=== PATIENT | male | born 1935 | race Caucasian/White ===

== ENCOUNTER 2018-12-30 10:01 | Inpatient (IN) ==
[2018-12-30] MEDS ORDERED: XYLOCAINE 2% VISCOUS MT ONE (11:15)
--- NOTE | 2018-12-30 11:22 | Diag Imaging Result Doc PS360 ---
EXAM: CHEST-1 VIEW HISTORY: edema TECHNIQUE: Single view COMPARISON: None. FINDINGS: The lungs are well expanded. The heart is not enlarged. The vessels are not distended. There are no infiltrates. No effusion identified. IMPRESSION: Negative exam. Electronically signed by Tang Longo 12/30/2018 11:19 AM
[2018-12-30 11:34] LABS: BASO# 0.05 X1000 (0.0-0.2); BASO% 0.6 % (0.0-0.8); EOS# 0.12 X1000 (0.0-0.7); EOS% 1.5 % (0.0-10.0); HEMOGLOBIN 11.3 g/dL (14.0-18.0); IMM GRAN# 0.02 X1000 (0.0-0.04); IMM GRAN% 0.3 % (0.0-0.5); LYMPH# 1.27 X1000 (1.2-3.4); LYMPH% 16.3 % (20.5-51.1); MCH 29.2 PG (27-31); MCHC 32.3 g/dL (33-37); MCV 90.4 FL (81-99); MONO# 0.57 X1000 (0.11-0.59); MONO% 7.3 % (1.7-9.3); MPV 11.2 FL (7.4-10.4); NEUT# 5.74 X1000 (1.4-6.5); PLT 267 X1000 (130-400); RBC 3.87 XMIL (4.7-6.1); RDW 15.5 % (11.5-14.5); WBC 7.77 X1000 (4.8-10.8)
[2018-12-30 11:51] LABS: ALB/GLOB RATIO 1.7; ALBUMIN 4.5 g/dL (3.5-5.0); CALCIUM 9.3 mg/dL (8.8-10.2); CREATININE 3.6 mg/dL (0.7-1.2); POTASSIUM 4.7 mmol/L (3.5-5.1); TOTAL BILIRUBIN 0.2 mg/dL (0.20-1.00); TOTAL PROTEIN 7.1 g/dL (6.3-8.3)
[2018-12-30] MEDS ORDERED: XYLOCAINE 2% JELLY UROJECT UR ONE (12:00)
[2018-12-30] MEDS ORDERED: FLOMAX PO ONE (12:32)
--- NOTE | 2018-12-30 12:32 | PROVIDER DOCUMENTATION ---
This chart was entered by Andrew Estrada Scribe, acting as scribe for Puma Moya MD. HPI-General Adult - General Chief Complaint: Edema Stated Complaint: EDEMA Time Seen by Provider: 12/30/18 10:29 Source: patient, family Allergies/Adverse Reactions: Patient Allergies Allergy/AdvReac Type Severity Reaction Status Date / Time codeine Allergy Unknown Verified 12/30/18 11:49 Penicillins Allergy Unknown Verified 12/30/18 11:49 - History of Present Illness -Gen Adult Nature of Presenting Problems: 83 yom presents to the ed with c/o bilateral edema on lower extremity's and enlarged prostate. pt states onset symptoms started little over a month ago. stated " it started as small swelling then increased a week ago." stated " pt when urinating now urine is a dribble , and pt gets up and down constantly to use the bathroom." stated pt was put on Lasix and had no change. pt stated recent change in thyroid medication. Location of Pain/Injury: reports: upper extremity (Bilateral edema) Pain Radiation: reports: no radiation Quality of Pain: reports: none Severity: reports: mild Onset/Duration: reports: other (pt states " about a month") Timing: reports: still present Context/Activities at Onset: reports: none Modifying Factors: worse with: movement Associated Symptoms: reports: shortness of breath. denies: arm pain, back/neck pain, chest pain, constipation, cough, diarrhea, fever/chills, headaches, loss of appetite, nausea, vomiting Similar Symptoms Previously?: No Recently seen or treated by another doctor?: No Review of Systems - Adult - REVIEW OF SYSTEMS - ADULT Constitutional: denies: chills, fever Eyes: reports: no symptoms reported Ears, Nose, Mouth & Throat: denies: ear pain, sinus problem, throat swelling Cardiovascular: denies: chest pain, heart murmur, palpitations, syncope Respiratory: reports: see HPI, shortness of breath. denies: cough, wheezing Gastrointestinal: denies: abdominal pain, constipation, diarrhea, nausea, rectal bleeding, vomiting Genitourinary: reports: urinary retention. denies: dysuria, discharge Musculoskeletal: reports: see HPI. denies: back pain, neck pain Integumentary: reports: no symptoms reported Neurological: reports: no symptoms reported Psychiatric: reports: no symptoms reported Endocrine: reports: no symptoms reported Hematologic/Lymphatic: reports: no symptoms reported Allergic/Immunologic: reports: no symptoms reported All Other Systems: Reviewed and Negative Past History - Adult - PAST MEDICAL HISTORY-ADULT Review of Records: reports: Old Records Reviewed, Nursing Assessment Review, Medications Reviewed, Social history reviewed & non-contributory. Major Childhood Illnesses: reports: denies history Cardiovascular: reports: HTN, hyperlipidemia Respiratory: reports: denies history Gastrointestinal: reports: GERD Obstetrical/Gynecological: reports: denies history Genitourinary: reports: denies history Musculoskeletal: reports: denies history Neurological: reports: denies history Endocrine/Immune: reports: cancer (skin) Other Conditions: reports: denies history - IMMUNIZATION STATUS Childhood Immunizations: See Nurse Assessment Flu Vaccine: See Nurse Assessment - FAMILY HISTORY Family History: reviewed, not pertinent Physical Exam-General - PHYSICAL EXAM-ADULT Initial Vital Signs Reviewed: Yes - CONSTITUTIONAL General Appearance: appears well, alert, no apparent distress - EYES Eyes: PERRL/EOMI, pink conjunctivae - HEAD, EARS, NOSE, MOUTH & THROAT HENMT: moist mucous membranes, pharynx normal - RESPIRATORY Respiratory: normal breath sounds, no pleuratic chest pain, no respiratory distress, no accessory muscle use - CARDIOVASCULAR Cardiovascular: regular rate, rhythm, no edema, no gallop, no JVD, no murmur - GASTROINTESTINAL (ABDOMEN) Abdominal Exam: non tender, soft, no organomegaly, no pulsatile mass - GENITOURINARY Male Genitalia: scrotal swelling Rectal Exam: deferred Hemoccult Exam: deferred - MUSCULOSKELETAL Extremity: pedal edema (2 + bilateral extermitys) - SKIN Integumentary: normal color, normal turgor, warm/dry - NEUROLOGIC Neurologic: nursing education specialist II-XII nml as tested, grossly normal, no motor/sensory deficits - PSYCHIATRIC Psych/Mental Status: normal mood/affect, normal thought content, normal thought process, oriented x 3 Progress - PLAN OF CARE/RESULTS Progress/Plan/Lab Results: Vital Signs - 8 hr 12/30/18 10:12 Temperature 97.6 F Pulse Rate 83 Respiratory Rate 18 Blood Pressure 178/83 O2 Sat by Pulse Oximetry 97 Orders Category Date Time Status Blackwood Cath Insertion ORDERED Care 12/30/18 10:51 Active CHEST-1 VIEW [RAD] Stat Exams 12/30/18 10:44 Ordered CBC WITH DIFF [HEME] Stat Lab 12/30/18 10:44 Uncollected COMPREHENSIVE METABOLIC PANEL [CHEM] Stat Lab 12/30/18 10:44 Uncollected URINALYSIS W/POSS RFLX CULT [URINALYSIS] Stat Lab 12/30/18 10:44 Uncollected EKG [EKG] Stat Ther 12/30/18 10:44 Ordered Result Diagrams: 12/30/18 11:05 12/30/18 11:05 - EKG 1 Time of EKG reading by physician:: 12:18 EKG Read and Signed by:: Puma Moya EKG Interpretation (*Must complete 3 of following elements*): Normal Rate: 90 Rhythm: NSR [place]: normal QRS: normal [place] Interval: normal ST Wave: normal - XRAY 1 XRAY Study: Chest Impression: See EMR Report ( EXAM: CHEST-1 VIEW HISTORY: edema TECHNIQUE: Single view COMPARISON: None. FINDINGS: The lungs are well expanded. The heart is not enlarged. The vessels are not distended. There are no infiltrates. No effusion identified. IMPRESSION: Negative exam. Electronically signed by Tang Longo 12/30/2018 11:19 AM 12/30/18 1119 Interpreting Physician: aTng Longo MD Dictated Date/Time: 12/30/18 1119 cc: Puma Moya MD; Jenifer Conde) - CONSULTS/PCP/HOSPITALIST Notification #1 *Consult/PCP/Hospitalist*: on phone with Dr. Cuba Time Discussed: 11:12 (putting cath in pt ) Consult Disposition: Will see in ED #2 Consult: on phone with Hospitalists Time Discussed: 12:25 ([facility] will admit ) Consult Disposition: Admit Departure - Departure Date of Disposition Decision: 12/30/18 Time of Disposition Decision: 12:13 DIAGNOSIS: Edema, STEVAN (acute kidney injury), Urinary retention Disposition: ADMITTED INPATIENT 09 Certified Medical Emergency: Emergent Condition: Good Referrals and Follow-Ups: Jenifer Conde [Primary Care Provider] - - Critical Care Note This patient required my direct & personal management of CC.: No Attestation - Physician/ EDDA Attestation Patient care was provided by Advanced Practice Provider:: No The physician spent face to face time with patient:: Yes Advanced Practice Provider documentation review:: Supervising physician onsite and consulted in the evaluation and care of this patient. The physician did have a face to face encounter with the patient. This chart was documented by the indicated scribe, (Andrew Estrada, Luiz) and accurately reflects the services I performed and decisions made by me, Puma Moya MD, as attested by the provider's signature.
[2018-12-30 12:44] LABS: URINE SOURCE CATH
[2018-12-30 12:48] LABS: BILIRUBIN URINE NEGATIVE (NEGATIVE); BLOOD URINE MODERATE (NEGATIVE); COLOR ORANGE; GLUCOSE URINE NEGATIVE (NEGATIVE); KETONE URINE NEGATIVE (NEGATIVE); LEUKOCYTES URINE TRACE (NEGATIVE); NITRITE URINE NEGATIVE (NEGATIVE); PH URINE 5.5; PROTEIN URINE TRACE mg/dL (NEGATIVE); TURBIDITY URINE HAZY (CLEAR); UR EPITHELIAL CELLS <10 /HPF (<10); URINE BACTERIA NEGATIVE /HPF; URINE RBC TNTC /HPF (<10); UROBILINOGEN URINE NORMAL (NORMAL)
[2018-12-30] MEDS ORDERED: LEVAQUIN 500 MG/D5W 500 MG/100 ML IVPB IV ONE (13:06)
[2018-12-30] MEDS ORDERED: TYLENOL PO PRN (13:13)
[2018-12-30] MEDS: NS 1,000 ML IV SCH (13:42)
[2018-12-30] MEDS ORDERED: XYLOCAINE-MPF 2% ONE (14:37)
[2018-12-30] MEDS ORDERED: DIPRIVAN 1% ONE (14:37)
--- NOTE | 2018-12-30 15:35 | CONSULTATION ---
DATE OF CONSULTATION: 12/30/2018 REFERRING PHYSICIAN: Cally Physician CHIEF COMPLAINT: Swelling. HISTORY OF PRESENT ILLNESS: This 83-year-old male states that he has a history of swelling of his lower extremities and "male parts". He states this has never occurred before. He states that he has a long history of obstructive voiding. He states that his family physician placed him on Flomax at 0.4 mg a day. The patient states that he has to push to initiate voiding. He denies any previous urologic surgery and he has no history of kidney stones. He states that he has never had swelling like this before. He states that he has hernias. The right side is much larger than his left. He states that it does bulge when he pushes to void. PAST MEDICAL HISTORY: Hypothyroidism and hypertension. CURRENT MEDICATIONS: Documented on the chart and include tamsulosin 0.4 mg every morning. PAST SURGICAL HISTORY: Tonsillectomy and left hand surgery. SOCIAL HISTORY: No tobacco or alcohol use. ALLERGIES: He is allergic to codeine. He states that he cannot take hydrocodone or oxycodone either. REVIEW OF SYSTEMS: He states that usually he is in good health. He states that he runs for exercise and hikes. He denies any problems with diabetes, heart disease, strokes, seizures, pulmonary, or bowel problems. PHYSICAL EXAMINATION: General: A thin, age apparent, normally developed, white male oriented in all ways and cooperative. HEENT: Normal for age. Lungs: Clear. Cardiovascular: Regular rate and rhythm with holosystolic murmur. Abdomen: Flat with a bulge in the suprapubic area consistent with a distended bladder. There is also a noticeable right inguinal hernia. No hepatosplenomegaly or masses. Normal bowel sounds. : With edema of the foreskin and scrotum. Foreskin is able to be retracted back past the meatus. Large right inguinal hernia. Smaller left inguinal hernia. Rectal: Exam is deferred at this time. Extremities: Plus 2 pitting edema from the thighs all the way down. No cyanosis or clubbing. LABORATORY DATA: Laboratory evaluation has a white count of 7.77, hemoglobin 11.3, hematocrit 35, and platelets 267,000. Serum electrolytes has a sodium of 139, potassium 4.7, chloride 101, bicarb 17, BUN 77, and creatinine 3.6. His alkaline phosphatase is normal. Urinalysis and culture are pending. IMPRESSION: 1. Enlarged prostate with obstructive voiding. 2. Urinary retention (post-void scan was greater than 999). 3. Lower extremity and scrotal edema. 4. Renal insufficiency. PROCEDURE: The patient was prepped and draped sterilely for Blackwood catheter insertion. Approximately 20 mL of 2% viscous lidocaine was placed in the urethra and held for 5 minutes. After the anesthesia was achieved he was prepped and draped sterilely. An 18 Indonesian Blackwood catheter was attempted to be placed but before this was started there was already blood at the meatus from previous trials by the [employer]. The straight catheter would not advance into the bladder. It was removed and an 18 Indonesian Coude catheter was then passed through the patient's urethra and up to the sphincter area and after he relaxed the catheter was able to be pushed through the sphincter and up into the bladder. Immediate return of urine occurred; 10 mL of sterile water was placed in the Blackwood's balloon. Within 5 minutes over 1300 mL of clear urine returned. He tolerated this well. PLAN: His Flomax will be increased to 0.4 mg b.i.d. The patient is going to be admitted and we will follow while he is hospitalized. Thank you for this consultation. cc: Ganesh Dinero MD
[2018-12-30] MEDS: MORPHINE IV PRN ×3 (16:55→23:04)
--- NOTE | 2018-12-30 17:27 | EKG Report ---
Test Performed on : 12/30/2018 12:18:15 PM Test Reason : edema Blood Pressure : / mmHG Vent. Rate : 090 BPM Atrial Rate : 090 BPM P-R Int : 178 ms QRS Dur : 068 ms QT Int : 348 ms P-R-T Axes : 084 050 070 degrees QTc Int : 425 ms Normal sinus rhythm. Normal ECG No previous ECGs available Unconfirmed Result
[2018-12-30] MEDS: UROGESIC-BLUE PO PRN (17:44)
--- NOTE | 2018-12-30 19:44 | HISTORY AND PHYSICAL ---
PRIMARY CARE PROVIDER: Dr. Jenifer Conde. CHIEF COMPLAINT: Lower extremity swelling, scrotal swelling and leaky bladder. HISTORY OF PRESENT ILLNESS: Mr. Ganesh Baxter is an 83-year-old male with a medical history of hypertension, hypothyroidism, and most recently BPH with lower extremity edema. He states that for 2 to 3 months he has had lower extremity swelling. He was started on Lasix around 2 weeks ago. Claims that he had a cardiac workup that was negative, but over the last 2 to 3 days, he states that he started having swelling in his scrotum and a very leaky bladder. Unable to control his bladder, hard to empty his bladder. He denies burning with urination, but urinalysis appears to be a urinary tract infection. He has acute kidney injury. When they bladder scanned him, there was over 900 mL of urine in the bladder. So, they already consulted Dr. Dinero, who placed a coude Blackwood catheter and increased his frequency on his Flomax. Given the acute kidney injury, we will hold off on his Lasix and will give him some fluids to help flush his kidneys. He does have pretty good swelling in the lower extremities. We will get an echocardiogram to evaluate heart function, and for the urinary tract infection, we will start him on antibiotics. PAST MEDICAL HISTORY: 1. Hypertension. 2. Hypothyroidism. 3. BPH. 4. Bilateral lower extremity edema. SURGICAL HISTORY: 1. He had a skin cancer removed off his nose. 2. Tonsillectomy/adenoidectomy. 3. Left hand surgery. SOCIAL HISTORY: Denies tobacco. Drinks about 1 beer a week. Denies any illicit drug use. Lives at home with his of 51 years. FAMILY HISTORY: Mother had heart problems, but she early in a car wreck. Father had prostate trouble, osteoporosis, and heart attack. ALLERGIES: Codeine and penicillin. Cow's milk (lactose intolerance). HOME MEDICATIONS: 1. Amlodipine 5 mg twice daily. 2. Lasix 20 mg p.o. daily. 3. Lisinopril/hydrochlorothiazide 10/12.5 mg once daily. 4. Synthroid 25 mcg p.o. daily. 5. Tamsulosin 0.4 mg p.o. daily, but has been increased to twice daily per Dr. Dinero. REVIEW OF SYSTEMS: Fourteen-point review of systems was completed, and all were negative for those mentioned above in the HPI. PHYSICAL EXAMINATION: VITAL SIGNS: Temperature 97.6, heart rate 83, respiratory rate 18, blood pressure 178/83, O2 saturation 97% on room air. He is 5 feet 10 inches tall, 140 pounds. BMI is 20.1. GENERAL: Mr. Ganesh Baxter is an 83-year-old male. He is in no acute distress. He is able answer questions appropriately. HEENT: Atraumatic, normocephalic. Pupils equal, round, reactive to light. Extraocular movements intact. Mucous membranes are dry. NECK: Trachea midline. CARDIOVASCULAR: S1, S2. Regular rate and rhythm. No rubs, gallops, or murmurs. There is 2+ lower extremity edema, 3+ scrotal edema, 1+ dorsalis pedal pulses, +2 radial pulses. Negative JVD or carotid bruits. PULMONARY: Clear to auscultate. Bilateral breath sounds. No accessory muscle use or work of breathing noted GI: Soft, nontender, nondistended. Positive bowel sounds x4. EXTREMITIES: Moves all extremities equally. Decreased range of motion and swelling of the lower extremities. NEUROLOGIC: A and O x3. Follows commands. Sensory is intact. SKIN: Warm, dry, and intact but pale, and there is moisture between his scrotum and his thighs. LABORATORY DATA: White blood cells 7000, hemoglobin 11, hematocrit 35, platelet count 267. Sodium 139, potassium 4.7, BUN 77, creatinine 3.6, glucose 86, calcium 9.3, bilirubin 0.20. AST 40, ALT 24, albumin 4.5. Urinalysis: Trace protein, moderate blood, trace leukocytes, 10 to 20 white blood cells, yby-[id number] count red blood cells, negative bacteria. IMAGING: Chest x-ray: Negative exam. ASSESSMENT AND PLAN: 1. Benign prostatic hypertrophy with urinary retention requiring Blackwood catheter placement by Dr. Dinero. Dr. Dinero has been consulted. His Flomax has been increased to twice a day. 2. Acute kidney injury, likely postrenal due to benign prostatic hypertrophy. We will get IV fluid hydration for now and will hold off on the Lasix. We will hold off on the lisinopril. 3. Bilateral lower extremity edema and scrotal edema. We will get an echocardiogram and lower extremity ultrasound to evaluate for heart function and if there are any deep venous thromboses or clots in the legs. 4. Hypertension. We will continue with amlodipine. 5. Hypothyroidism. Continue with Synthroid. 6. Deep venous thrombosis prophylaxis, sequential compression devices. 7. Urinary tract infection. Will do Levaquin 500 daily. Dictated by SUNIL Fitch for Geoffrey Lauren MD Addendum: Patient seen and examined by myself. Agree with SIGNAL PERSON note. It reflects my assessment and plan. Patient is being admitted to hospital for anasarca and acute kidney injury. It looks like prostate is very enlarged. Urology needed to place Blackwood catheter. Will consult Urology and Nephrology and will go from there. cc: SUNIL Fitch MD [facility]
[2018-12-30] MEDS: FLOMAX PO SCH (21:54)
[2018-12-30] MEDS: MELATONIN PO SCH (21:54)
[2018-12-31] MEDS: UROGESIC-BLUE PO PRN (02:40)
[2018-12-31] MEDS: ZOFRAN IV PRN (02:40)
[2018-12-31 05:23] LABS: BASO# 0.01 X1000 (0.0-0.2); BASO% 0.1 % (0.0-0.8); HEMATOCRIT 26.4 % (42.0-52.0); HEMOGLOBIN 8.3 g/dL (14.0-18.0); IMM GRAN# 0.03 X1000 (0.0-0.04); IMM GRAN% 0.3 % (0.0-0.5); LYMPH# 0.61 X1000 (1.2-3.4); LYMPH% 6.6 % (20.5-51.1); MCH 28.9 PG (27-31); MCHC 31.4 g/dL (33-37); MONO# 0.39 X1000 (0.11-0.59); MONO% 4.2 % (1.7-9.3); NEUT# 8.24 X1000 (1.4-6.5); NEUT% 88.8 % (42.2-75.2); PLT 262 X1000 (130-400); RBC 2.87 XMIL (4.7-6.1); RDW 15.2 % (11.5-14.5); WBC 9.28 X1000 (4.8-10.8)
[2018-12-31 05:26] LABS: INR 1.24; PROTIME 15.8 Seconds (11.0-16.0)
[2018-12-31 05:27] LABS: PTT 28.3 Seconds (22.3-41.8)
[2018-12-31 05:47] LABS: ALB/GLOB RATIO 1.5; ALBUMIN 3.7 g/dL (3.5-5.0); CREATININE 3.6 mg/dL (0.7-1.2); MAGNESIUM 2.5 mg/dL (1.5-2.7); POTASSIUM 5.3 mmol/L (3.5-5.1); TOTAL BILIRUBIN 0.23 mg/dL (0.20-1.00); TOTAL PROTEIN 6.2 g/dL (6.3-8.3)
[2018-12-31] MEDS: SYNTHROID PO SCH (06:28)
[2018-12-31 07:01] LABS: BANDS 2 % (0-1); LYMPHS 4 % (21-51); MONO 4 % (1-9); SEGS 86 % (42-75)
--- NOTE | 2018-12-31 08:57 | Diag Imaging Result Doc PS360 ---
EXAM: US RENAL 2 (RETROPER) COMPLETE HISTORY: karina TECHNIQUE: Renal ultrasound COMPARISON: None. FINDINGS: The right kidney measures 11.8 x 6.6 x 6.4 cm. Moderate to prominently distended renal pelvis and calyces. Normal renal echotexture. The left kidney measures 13.6 x 8.0 x 6.6 cm. Markedly dilated renal pelvis and calyces. There is a large pelvic mass versus an enlarged prostate measuring over 15 cm. The urinary bladder is moderately distended. IMPRESSION: Prominent bilateral hydronephrosis secondary to a large pelvic mass versus enlarged prostate. Electronically signed by Tang Longo 12/31/2018 8:55 AM
[2018-12-31] MEDS: NS 1,000 ML IV SCH (09:00)
[2018-12-31] MEDS: NORVASC PO SCH (10:06)
[2018-12-31] MEDS: FLOMAX PO SCH ×2 (10:06→20:16)
[2018-12-31] MEDS: LEVAQUIN 500 MG/D5W 500 MG/100 ML IVPB IV SCH (10:06)
--- NOTE | 2018-12-31 10:07 | PROGRESS NOTE ---
DATE: 12/31/2018 SUBJECTIVE: Patient reports feeling fine. Swelling in both lower extremities still there. OBJECTIVE: Vital Signs: Temperature 97.4 degrees, heart rate 94, respiratory rate 18, blood pressure 143/75, O2 saturation 99% on room air. General Examination: This is a 89-year-old male, lying in bed, in no acute distress. Cardiovascular: S1, S2 heard. No murmurs, gallops, or rubs. Regular rate and rhythm. Respiratory: Clear bilaterally to auscultation. No work of breathing or using accessory muscles. Abdomen: Soft. A little bit distended but nontender to palpation. Bowel sounds present. No organomegaly. Extremities: Swelling of both lower extremities 4+ until both knees. Neurological: Patient alert and oriented x3. Moves 4 extremities. LABORATORY DATA: White cell count 9.3, hemoglobin 8.3, hematocrit 26.4, platelets 262,000. Potassium 5.38. Creatinine 3.6, calcium 7.5. Renal ultrasound done today showed prominent bilateral hydronephrosis secondary to large pelvic mass versus enlarged prostate. ASSESSMENT AND PLAN: 1. Acute kidney injury, most likely postobstructive secondary to benign prostatic hypertrophy. Dr. Dinero was consulted because we were not able to place Blackwood catheter on this patient. The renal ultrasound showed severe bilateral hydronephrosis secondary to enlarged prostate pelvic mass. We are going to do a CT of the abdomen and pelvis to confirm that finding and have other visualization of the pelvic anatomy. 2. Bilateral lower extremity edema and scrotal edema most likely related to this kidney problem. We will get echocardiogram to see if there is any heart problem that could explain this lower extremity edema. 3. Hypertension. Blood pressure is under control. We will continue with same management. 4. Hypothyroidism. Patient is on Synthroid. Will continue with the same medication. 5. Urinary tract infection. We will continue with Levaquin, has been started on admission, 500 mg p.o. daily. 6. Disposition. We will continue to monitor this patient. CT of the abdomen and pelvis is pending. We will see what it shows. cc: Geoffrey Lauren MD MTDD
[2018-12-31] MEDS: LOKELMA POWDER PACKET PO SCH ×3 (10:49→18:24)
[2018-12-31 13:17] LABS: CALCIUM 9.8 mg/dL (8.8-10.2)
[2018-12-31] MEDS ORDERED: SODIUM CHLORIDE 0.9% INJ PRN (13:26)
[2018-12-31] MEDS ORDERED: G.I. COCKTAIL PO ONE (13:26)
[2018-12-31] MEDS: PHENERGAN IV PRN (13:58)
--- NOTE | 2018-12-31 16:50 | Diag Imaging Result Doc PS360 ---
EXAM: CT RENAL STONE SEARCH HISTORY: pelvic mass on ultrasound. TECHNIQUE: CT abdomen and pelvis without contrast. COMPARISON: None. FINDINGS: There are tiny pleural effusions. Severe atherosclerosis. Small nonspecific hypodense hepatic lesions which may simply be cysts. No calcified gallstones. Spleen is small. Normal pancreas and adrenal glands. Prominent bilateral hydronephrosis, left greater than right. The urinary bladder is markedly enlarged measuring at least 13.5 x 14.5 x 20.5 cm. Large mixed density area within the central portion of the urinary bladder. There is a Blackwood catheter. No bowel obstruction. There are scattered colonic diverticula. Fat filled right inguinal hernia. Body wall edema is present. IMPRESSION: 1.Markedly distended urinary bladder with a large bladder mass versus large hematoma with bilateral hydronephrosis. Urological consult recommended. 2.Body wall edema with tiny pleural effusions 3.Severe atherosclerosis 4.Colonic diverticulosis 5.Right inguinal hernia This exam was performed using automated exposure control, adjustment of mA or kV according to patient size, and/or use of iterative reconstruction technique. Electronically signed by Tang Longo 12/31/2018 4:48 PM
[2018-12-31] MEDS: MELATONIN PO SCH (20:16)
[2018-12-31 22:39] LABS: HEMATOCRIT 21.6 % (42.0-52.0); HEMOGLOBIN 6.9 g/dL (14.0-18.0)
[2019-01-01] MEDS: NS 1,000 ML IV SCH (05:46)
[2019-01-01] MEDS: SYNTHROID PO SCH ×2 (05:46→06:03)
[2019-01-01 06:44] LABS: BASO# 0.01 X1000 (0.0-0.2); BASO% 0.1 % (0.0-0.8); EOS# 0.02 X1000 (0.0-0.7); EOS% 0.2 % (0.0-10.0); HEMATOCRIT 22.4 % (42.0-52.0); HEMOGLOBIN 7.3 g/dL (14.0-18.0); IMM GRAN# 0.03 X1000 (0.0-0.04); IMM GRAN% 0.3 % (0.0-0.5); LYMPH# 0.87 X1000 (1.2-3.4); LYMPH% 9.2 % (20.5-51.1); MCH 29.3 PG (27-31); MCHC 32.6 g/dL (33-37); MONO# 1.02 X1000 (0.11-0.59); MONO% 10.8 % (1.7-9.3); MPV 10.8 FL (7.4-10.4); NEUT% 79.4 % (42.2-75.2); PLT 213 X1000 (130-400); RBC 2.49 XMIL (4.7-6.1); RDW 14.9 % (11.5-14.5); WBC 9.45 X1000 (4.8-10.8)
[2019-01-01] MEDS ORDERED: GENTAMICIN ONE (08:02)
[2019-01-01] MEDS ORDERED: NS 500 ML IV ONE (08:57)
--- NOTE | 2019-01-01 09:04 | ECHO REPORT ---
ORDER DATE: 12/31/2018 MEASUREMENTS: Septal thickness 0.8, left ventricular internal diameter in diastole 4.6, posterior wall thickness 0.8, left ventricular internal diameter in systole 3.6, aortic root 3.3, left atrium 2.9. SUMMARY: 1. Fair quality study. 2. Aortic valve is trileaflet and opens normally on 2-dimensional images. The peak gradient across the aortic valve by Doppler is 10 to 15 mmHg. There is mild aortic regurgitation. The aortic root is normal in size. There is mild dilatation of proximal ascending aorta. Mitral, tricuspid, and pulmonic valves are without evidence of structural abnormality, with mild mitral regurgitation and trace tricuspid regurgitation. The estimated systolic PA pressure by Doppler is 35 mmHg. 3. Normal left ventricular dimension is demonstrated. Estimated left ventricular ejection fraction appears to be at least 55%. No regional wall motion abnormalities are evident. Doppler suggests grade 1 left ventricular diastolic dysfunction. Left atrium, right atrium, and right ventricle are normal in size with grossly preserved right ventricular systolic function. 4. No pericardial effusion. 5. Appearance of inferior vena cava suggests normal central venous pressure. CONCLUSIONS: 1. Mild aortic regurgitation. 2. Mild dilatation of proximal ascending aorta. 3. Mild mitral regurgitation. 4. Trace tricuspid regurgitation with estimated systolic PA pressure of 35 mmHg. 5. Estimated left ventricular ejection fraction at least 55%. 6. Grade 1 left ventricular diastolic dysfunction suggested. cc: MD Jeane Martin CRNP
[2019-01-01] MEDS ORDERED: XYLOCAINE-MPF 2% ONE (09:13)
[2019-01-01] MEDS ORDERED: DIPRIVAN 1% ONE (09:13)
[2019-01-01] MEDS ORDERED: LEVAQUIN 500 MG/D5W 500 MG/100 ML IVPB ONE (09:26)
[2019-01-01] MEDS: LEVAQUIN 500 MG/D5W 500 MG/100 ML IVPB IV SCH (09:50)
[2019-01-01] MEDS ORDERED: ZOFRAN ONE (10:51)
[2019-01-01] MEDS: DILAUDID ONE ×4 (11:18→11:27)
--- NOTE | 2019-01-01 11:22 | NEPHROLOGY CONSULTATION ---
DATE: 01/01/2019 Chief complaint: I was swelling in my feet. HPI: Mr. Baxter is an 83 year old white male with a past medical history of hypertension, hypothyroidism, and most recently BPH with lower extremity edema. Hes had a 2 to 3 month history of lower extremity swelling that he was started on Lasix for around two weeks ago. Three days ago he started having scrotal edema and an incontinent bladder. He denies burning with urination. When he presented to the emergency department they bladder scanned him and he had over 900 mL of urine in his bladder. Dr. Dinero placed a Coude Blackwood catheter and increased his flomax. His urine analysis was positive for bacteria with urine cultures pending. His CT of his abdomen and pelvis showed a large bladder mass with bilateral hydronephrosis. He is currently awaiting surgery with Dr. Dinero. His admitting Creatinine is 3.6 with no baseline available. Past medical history: hypertension, hypothyroidism, BPH Past surgical history: left hand surgery, tonsillectomy/adenoidectomy, skin cancer removal off of his nose. Social history: lives at home with his , denies tobacco or illicit drug use. Admits to occasional alcohol. Family history: mother positive for heart disease. Father positive for prostate problems, osteoporosis, and myocardial infarction. Allergies: codeine and penicillin Home medications: Amlodipine, Lasix, lisinopril/hydrochlorothiazide, Synthroid, Flomax. Review of systems: neurological: Denies altered mental status or confusion. Eyes: denies blurriness, dryness, or change in visual acuity. ENT: denies tinnitus or change in hearing. Integumentary: denies color change, rash or itching. Respiratory: denies shortness of breath and orthopnea. Denies productive cough. Cardiovascular: denies palpitations or chest pain. GI: Denies constipation and nausea and vomiting. : admits to incontinent bladder episodes, denies pain or burning with voids. Endocrine: denies excessive thirst or hunger. Musculoskeletal: denies any increase in weakness. Admits to new onset bilateral lower extremity edema. Physical exam: vitals. Temperature 98.0, pulse 92, respirations 15, blood pressure 158/79, 02 sat 97% on 2 L nasal cannula. General: elderly white male lying in bed in pre-op in no acute distress HEENT: normocephalic, atraumatic, mucous membranes moist. Pupils equal round and reactive. Skin: warm and dry Neck: supple, No jvd. Cardiovascular: S1, S2, regular rate and rhythm. No murmur or gallop. Respiratory: clear bilaterally with equal air excursion Abdominal: distended, firm, nontender. bowel sounds present : None observed. Blackwood in place. Extremities: 2+ pitting Edema to lower extremities bilaterally. Neurologic: alert, oriented to person, place, and time. Assessment and plan: 1. Acute kidney injury from bilateral hydronephrosis with chronicity on left. He has a Blackwood catheter, and has plans to go to the operating room today. Repeat urine studies and labs. Observe. 2. Medications reviewed. 3. Acid base/electrolytes. No intervention required. cc: Johan Cruz MD MTDD
--- NOTE | 2019-01-01 11:46 | Diag Imaging Result Doc PS360 ---
EXAM: RETROGRADES 2 OR 3 FILMS 01/01/2019 HISTORY: ESTHER STENTS,GROSS HEMATURIA,ESTHER. RETROGRADES TECHNIQUE: 116 images, three minutes 34 seconds fluoroscopy time, 85.11 mGy. COMMENT: There is mucosal irregularity and narrowing of the proximal right ureter extending over a length of over 2 cm. The left ureter is somewhat distended and tortuous. There is marked hydronephrosis on the left. Bilateral ureteral stents were placed. IMPRESSION: Bilateral hydronephrosis worse on the left than the right. The obstruction on the left side may be at the level of the ureteral orifice. The possibility of mucosal neoplasia in the distal right ureter cannot be excluded. Bilateral stent placement. Electronically signed by Tony Glynn 01/01/2019 11:43 AM
[2019-01-01] MEDS: NORVASC PO SCH (12:37)
[2019-01-01] MEDS: FLOMAX PO SCH ×2 (12:37→20:29)
[2019-01-01 12:41] LABS: HEMATOCRIT 23.2 % (42.0-52.0); HEMOGLOBIN 7.4 g/dL (14.0-18.0); MCHC 31.9 g/dL (33-37); RBC 2.55 XMIL (4.7-6.1); RDW 15.1 % (11.5-14.5); WBC 10.36 X1000 (4.8-10.8)
[2019-01-01 12:55] LABS: ALBUMIN 3.3 g/dL (3.5-5.0); CALCIUM 8.6 mg/dL (8.8-10.2); CREATININE 3.6 mg/dL (0.7-1.2); PHOSPHORUS 5.5 mg/dL (2.7-4.5); POTASSIUM 4.6 mmol/L (3.5-5.1)
--- NOTE | 2019-01-01 13:06 | OPERATIVE NOTE ---
PROCEDURE DATE: 01/01/2019 SURGEON: Dr. Ganesh Dinero. PREOPERATIVE DIAGNOSIS: Pelvic mass. Probable clot in bladder with bilateral hydroureteronephrosis. POSTOP DIAGNOSIS: Pelvic mass. Probable clot in bladder with bilateral hydroureteronephrosis; a large amount of clot in the bladder. PROCEDURE PERFORMED: Cystoscopic exam, clot irrigation fulguration of some bleeding areas, bilateral retrograde ureteral pyelograms placed, bilateral double-J stents. ANESTHESIA: General via laryngeal mask. FINDINGS: Cystoscopic exam: Urethra--greater than 23-Fijian without stricture. Prostate-- coapting lateral lobes, elevated bladder neck length approximately 6 cm. Bladder--median lobe. Grade 3 trabeculations. Multiple diverticula throughout (this was after all the clot was removed from the bladder). Rectal exam reveals a very firm prostate with a large nodule at the right base. INDICATIONS FOR PROCEDURE: This 83-year-old male was admitted with urinary retention. A Blackwood catheter was placed and he had over 1500 mL of urine return within 5 minutes. The patient has had intermittent hematuria since then, and a CT stone search revealed bilateral hydroureteronephrosis and a large pelvic mass, probable clot in the bladder. DESCRIPTION OF PROCEDURE: After informed consent was obtained from the patient and family and him receiving IV antibiotics, he was taken to the main OR cystoscopy room, placed in a supine position. General anesthesia via laryngeal mask was achieved. He was then placed in the low lithotomy position, prepped and draped in the usual sterile fashion for cystoscopic exam. A 21- Fijian sheath cystoscope was passed to the patient's urethra, prostate, and into the bladder. A large amount of clot was visualized. The sheath was changed to a 23-Fijian, and the bladder was irrigated. Over 1000 mL of old clot was removed. After the clot was removed, there were several bleeding areas and these were cauterized. The bladder neck area was also oozing and this was cauterized. An 8-Fijian cone-tipped catheter was passed through the cystoscope and engaged in the left ureteral orifice. Contrast was injected. Right side was accomplished similarly. Again, this revealed hydroureteronephrosis, left side worse than right, with no filling defects. However, the collecting systems were not completely distended because of their size. The 8-Fijian cone-tipped catheter was removed. A 0.035 ZIPwire was passed through the cystoscope and engaged the left ureteral orifice, advanced up into the kidney. This had to be done with manipulation because the ureters were very tortuous, but this was finally accomplished using a 5-Fijian open ended ureteral catheter and the wire to finally get the wire up into the kidney. The 5-Fijian open ended ureteral catheter was removed. A 6-Fijian, 24 cm double-J stent was passed over the ZIPwire and up into the kidney. The renal end was verified by fluoroscopic exam, bladder end directly visualized. The right side was accomplished similarly, and it likewise had to have the 5- Fijian open-ended ureteral catheter used to be able to get the wire up into the kidney. The stent removal strings were removed. At completion, both double-J stents were in place and there was no bleeding areas seen. The bladder was left distended. A 22-Fijian, 3 way Blackwood catheter was passed through the patient's urethra, prostate, and in the bladder 30 mL sterile water placed in Blackwood's balloon. Blackwood was placed to gravity drain. The efflux was light pink. Continuous bladder irrigation was started to keep the efflux completely clear. He tolerated the procedure well. Estimated blood loss during the case less than 5 mL. He was taken to the recovery room in good condition. cc: Ganesh Dinero MD
--- NOTE | 2019-01-01 14:23 | PROGRESS NOTE ---
DATE: 01/01/2019 SUBJECTIVE: The patient reports feeling fine. He is just back from surgery. No complaints at this point. OBJECTIVE: Vital Signs: Temperature 97.6 degrees, heart rate 92, respiratory rate 16, blood pressure 141/62, O2 saturation 100% on room air. General: This is an 83-year-old male, lying in bed in no acute distress. Cardiovascular: S1, S2 heard. No murmurs, gallops, or rubs. Regular rate and rhythm. Respiratory: Clear bilaterally to auscultation. No work of breathing. Not using accessory muscles. Abdomen: Soft, nontender to palpation. Bowel sounds present. No organomegaly. Extremities: No clubbing cyanosis, or edema. Peripheral pulses present in both legs. Neurological: The patient is alert and oriented x3. Moves all 4 extremities. LABORATORY DATA: Hemoglobin is 7.4, but from yesterday at 10 p.m., it was 6.9. Creatinine 3.6. ASSESSMENT AND PLAN: 1. Acute kidney injury, most likely postobstructive secondary to benign prostatic hypertrophy. The patient was admitted to the hospital for what apparently looks to be acute kidney injury secondary to obstruction. He had a big prostate. The renal ultrasound confirmed bilateral hydronephrosis secondary to large pelvic mass versus enlarged prostate. The renal CT confirmed markedly distended urinary bladder with large bladder mass versus large hematoma with bilateral hydronephrosis. Because he started having also bleeding yesterday, he was having marked hematuria, we informed Dr. Dinero from Urology, who took this patient to the operating room. That confirmed pelvic mass, and there was also probable clot in the bladder, and also confirmed the bilateral hydronephrosis. For this pelvic mass, General Surgery has been consulted. Will see what they have to say. 2. Bilateral lower extremity edema and scrotal edema secondary to acute kidney injury. To rule out any heart problems, we have done an echocardiogram, which basically showed ejection fraction of 55%, with mild aortic regurgitation and mitral regurgitation, so at this point, will continue to monitor. 3. Hypothyroidism. The patient is on Synthroid. Will continue with the same management. 4. Urinary tract infection. The patient has been placed on Levaquin. The urine culture showed no growth. Will continue with the same management. 5. Disposition. At this point, will await surgical consultation regarding this pelvic mass. Urology is also following this patient. Will follow recommendations. cc: Geoffrey Lauren MD
--- NOTE | 2019-01-01 16:29 | GENERAL SURGERY CONSULTATION ---
DATE: 01/01/2019 This is a pleasant 83-year-old gentleman who has never been in the hospital until now except for a tonsillectomy when he was very young. He presents with lower extremity swelling. He was noted to have a distended bladder in the emergency room and an attempt was made at placement of a Blackwood catheter, was unsuccessful and Dr. Dinero had to see him and place a Blackwood coude. Subsequent to that he developed bleeding and a CT scan showed a large bladder or prostate mass vs hematoma. He also has bilateral hernias larger on the right side. His past history per for hypothyroidism and hypertension. MEDICATIONS: At home include amlodipine, Lasix, Flomax and Synthroid. ALLERGIES: Codeine and penicillin. PREVIOUS SURGERY: Includes his tonsillectomy. He has had left hand surgery from an injury as well. FAMILY HISTORY: Pertinent for prostate trouble in his father, heart disease and osteoporosis. SOCIAL HISTORY: He is his of 51 years. Denies tobacco, denies any illicit drug use. He does drink beer occasionally. REVIEW OF SYSTEMS: Otherwise negative in all 10 subsystems. PHYSICAL EXAMINATION: He is afebrile, heart rate 104, blood pressure 122/69, respiratory rate 20. He is somewhat hard of hearing. No cervical adenopathy. Bilateral breath sounds.Heart: Regular rate and rhythm. Abdomen: Soft. This bladder/mass/hematoma is palpated above his pubic bone up to his umbilicus. It is tender to palpation. He has bilateral inguinal hernias larger on the right side. Blackwood catheter is in place. There is blood noted within his urine. He moves all extremities. He is awake and alert. He has diminished auditory acuity. LABS: Today his hemoglobin is 7.4, hematocrit 23, white count 10,400, BUN 74, creatinine 3.6. His pro time yesterday was 15.8, INR 1.2. ASSESSMENT: Bladder/prostate mass with hematoma. The etiology is uncertain. His certainly had the lower urinary tract obstruction from his prostate and this has been relieved with the urethral catheter. Both ureters were also drained adequately. I think primarily this is urologic issue. We can address his hernias after his bladder mass/hematoma and prostate is addressed and treated. Certainly he should not get any anticoagulants in the hospital and any DVT prophylaxis should be mechanical in origin. cc: Campbell Ryder MD MTDD
--- NOTE | 2019-01-01 17:28 | Extremity Venous Study ---
PROCEDURE NAME: Venous U/S Bilateral Legs - 12/31/2018 BILATERAL LOWER EXTREMITY VENOUS IMAGING STUDY: REFERRING PROVIDER: SUNIL Fitch INTERPRETING PHYSICIAN: Campbell Ryder MD SENIOR RUBY DEVELOPER: Venus. REASON FOR STUDY: The patient has bilateral lower extremity swelling. FINDINGS: Bilateral lower extremity venous images was accomplished. The common femoral, superficial femoral, deep femoral, popliteal, posterior tibial, peroneal, and greater saphenous veins are imaged bilaterally. The Doppler is used to evaluate the veins for spontaneity, phasicity, respiratory excursion, distal augmentation. All veins are compressible. No intraluminal clot is seen. A small left popliteal cyst is noted. INTERPRETATION: 1. No evidence of deep or superficial venous thrombosis in either lower extremity in the veins identified. 2. A small left popliteal cyst is noted. cc: MD Jeane Carvajal CRNP
[2019-01-01] MEDS: MELATONIN PO SCH (20:30)
[2019-01-02] MEDS: MORPHINE IV PRN (01:10)
[2019-01-02] MEDS: NS 1,000 ML IV SCH ×2 (02:23→23:19)
[2019-01-02] MEDS: SYNTHROID PO SCH ×2 (05:37→06:25)
[2019-01-02 06:44] LABS: BASO# 0.02 X1000 (0.0-0.2); BASO% 0.2 % (0.0-0.8); EOS# 0.05 X1000 (0.0-0.7); EOS% 0.4 % (0.0-10.0); HEMATOCRIT 25.7 % (42.0-52.0); HEMOGLOBIN 8.4 g/dL (14.0-18.0); IMM GRAN# 0.03 X1000 (0.0-0.04); IMM GRAN% 0.3 % (0.0-0.5); LYMPH# 1.43 X1000 (1.2-3.4); LYMPH% 12.5 % (20.5-51.1); MCH 29.6 PG (27-31); MCHC 32.7 g/dL (33-37); MCV 90.5 FL (81-99); MONO# 1.32 X1000 (0.11-0.59); MONO% 11.6 % (1.7-9.3); MPV 11.3 FL (7.4-10.4); NEUT# 8.55 X1000 (1.4-6.5); PLT 196 X1000 (130-400); RBC 2.84 XMIL (4.7-6.1); RDW 15.7 % (11.5-14.5)
[2019-01-02 06:55] LABS: ALBUMIN 3.2 g/dL (3.5-5.0); CALCIUM 8.3 mg/dL (8.8-10.2); PHOSPHORUS 4.6 mg/dL (2.7-4.5)
[2019-01-02] MEDS: LEVAQUIN 500 MG/D5W 500 MG/100 ML IVPB IV SCH (09:57)
[2019-01-02] MEDS: NORVASC PO SCH (09:57)
[2019-01-02] MEDS: FLOMAX PO SCH ×2 (09:57→20:08)
--- NOTE | 2019-01-02 11:03 | NEPHROLOGY PROGRESS NOTE ---
DATE: 01/02/2019 Subjective: pt is lying in bed voicing needing to go home and threatening to call the law. Objective: vitals. Temperature 98.1, pulse 100, respirations 19, blood pressure 141/71, 02 sat 99% on 2 L nasal cannula General: elderly white male lying in bed in no acute distress HEENT: [place], normocephalic, atraumatic, mucous membranes moist. Pupils equal round and reactive. Skin: warm and dry Neck: supple, No jvd. Cardiovascular: S1, S2, regular rate and rhythm. No murmur or gallop. Respiratory: clear bilaterally with equal air excursion Abdominal: distended, firm, tender. bowel sounds present : None observed. Osorio in place. Bloody urine in osorio bag. Extremities: 2+ pitting Edema to lower extremities bilaterally. Neurologic: alert, oriented to person, place, and time. Labs: intake 23659, output [id number]. WBC 11.40, hemoglobin 8.4, hematocrit 25.7, platelet count 196, sodium 144, potassium 4.0, chloride 106, carbon dioxide 21, anion gap 17, BUN 60, creatinine 3.0, calcium 8.3, phosphorus 4.6. Impression: Acute kidney injury from bilateral hydronephrosis with chronicity on left. He has a Osorio catheter with irrigation. Creatinine Improving. Continue to monitor. Medications reviewed. No changes. He is adamant about being discharged. I encouraged him to stay and attempted to describe the potential complications associated with premature discharge. If he leaves, I would advise that he leave against medical advice. cc: MD MARCY Paulino
--- NOTE | 2019-01-02 14:53 | PROGRESS NOTE ---
DATE: 01/02/2019 SUBJECTIVE: Patient has no major complaints. He is very agitated, and wants to go home. He does not feel like he is getting an appropriate amount of rest here, which I guess is relatable, but he is still having tutu hematuria despite bladder irrigation, although no more clots, but he is still having persistent hematuria. OBJECTIVE: Blood pressure 147/73, heart rate 92, respiratory rate 18, temperature 98.4 degrees, and 98% on room air.Cardiovascular: Regular rate and rhythm. Pulmonary: Bilateral breath sounds. Clear to auscultation. GI: Soft, nontender, and nondistended. Bowel sounds are positive. LABORATORY DATA: White count 11.4, hemoglobin and hematocrit 8 and 25, and platelets 196,000. BUN and creatinine of 60 and 3. PROBLEM LIST: 1. Persistent hematuria without a clear etiology although he had a procedure done yesterday. Pelvic mass, clot in the bladder, bilateral hydroureter nephrosis which presumably there was control of bleeding yesterday during the cystoscopy. I am not sure if that specimen was biopsied, but he has persistent hematuria. He is getting continuous bladder irrigation. Explained that he could not stop this at this time until urology clearance, and then we would consider getting him home. He seems to be doing okay otherwise, but again he had significant bleeding. He does have a history of stent placement previously. 2. Scrotal edema, and lower extremity edema. We will continue to follow. Probably would benefit from some diuretic, stopping the diuretic. He may also want to stop the calcium channel isaiah. DISPOSITION: Pending clinical status, but discharged when cleared by Urology. cc: Frankie Laboy MD
[2019-01-02] MEDS: MELATONIN PO SCH (20:08)
[2019-01-03] MEDS: ZOFRAN IV PRN (00:38)
[2019-01-03] MEDS: MORPHINE IV PRN ×2 (00:38→08:25)
[2019-01-03] MEDS: SYNTHROID PO SCH (06:02)
[2019-01-03 07:01] LABS: HEMATOCRIT 22.9 % (42.0-52.0); HEMOGLOBIN 7.3 g/dL (14.0-18.0); MCH 29.1 PG (27-31); MCHC 31.9 g/dL (33-37); MCV 91.2 FL (81-99); MPV 11.2 FL (7.4-10.4); RBC 2.51 XMIL (4.7-6.1); RDW 15.4 % (11.5-14.5); WBC 10.83 X1000 (4.8-10.8)
[2019-01-03 07:24] LABS: CREATININE 1.9 mg/dL (0.7-1.2)
[2019-01-03] MEDS: LEVAQUIN 500 MG/D5W 500 MG/100 ML IVPB IV SCH (08:26)
[2019-01-03] MEDS: FLOMAX PO SCH (08:26)
[2019-01-03] MEDS: NORVASC PO SCH (08:26)
[2019-01-03] MEDS ORDERED: BENADRYL PO ONE (09:43)
[2019-01-03] MEDS ORDERED: TYLENOL PO ONE (09:43)
[2019-01-03] MEDS ORDERED: NS 500 ML IV ONE (09:43)
[2019-01-03] MEDS ORDERED: KLOR-CON PO ONE (09:44)
[2019-01-03] MEDS: NS 1,000 ML IV SCH (14:29)
--- NOTE | 2019-01-03 15:49 | PROVIDER PROGRESS NOTE ---
Progress Note Subjective: pt is lying in bed awake. Voices having a restful night and feeling better. Objective: vitals. Temperature 98.0, pulse 81, respirations 18, blood pressure 137/66, 02 sat 98% on room air. General: elderly white male lying in bed in no acute distress HEENT: [place], normocephalic, atraumatic, mucous membranes moist. Pupils equal round and reactive. Skin: warm and dry Neck: supple, No jvd. Cardiovascular: S1, S2, regular rate and rhythm. No murmur or gallop. Respiratory: clear bilaterally with equal air excursion Abdominal: protuberant, firm, slightly tender. bowel sounds present : None observed. Osorio in place. Bloody urine in osorio bag. Extremities: 2+ pitting Edema to lower extremities bilaterally. Neurologic: alert, oriented to person, place, and time. Labs: WBC 10.83, hemoglobin 7.3, [place] 22.9, platelet count 209, sodium 144, potassium three, chloride 105, carbon dioxide 26, anion gap 13, BUN 38, creatinine 1.9, calcium 8.0, albumin 3.0. intake 07121, output [id number] Impression: Acute kidney injury from bilateral hydronephrosis with chronicity on left. Creatinine continues to Improve. Continue to monitor. Anemia. 1 unit PRBC ordered. Hypokalemia. PO Potassium given. Nutrition. Adequate. Ambulation. Adequate. Medications reviewed. No changes.
--- NOTE | 2019-01-03 20:05 | PROGRESS NOTE ---
DATE: 01/03/2019 SUBJECTIVE: Patient has no major complaints. He seems to appeased. OBJECTIVE: Blood pressure 156/75, heart rate of 87, respiratory rate of 17, temperature 97.8 degrees. Cardiovascular: Regular rate and rhythm. Pulmonary: Bilateral breath sounds. Clear to auscultation. Gastrointestinal: Soft, nontender, nondistended. Bowel sounds are positive. LABORATORY DATA: White count is 10, hemoglobin and hematocrit has dropped to 7 and 22, platelets of 209,000. Potassium of 3, creatinine of 1.9. PROBLEM LIST: 1. Persistent hematuria related to bladder dysfunction, pelvic mass with clot in the bladder, and hydroureteronephrosis. He is still having some bleeding and his hemoglobin and hematocrit still has dropped. We will continue to monitor. He is getting continual bladder irrigation. Dr. Dinero is going to watch him for another couple of days and then consider repeating cystoscopy at that point. 2. Symptomatic anemia. We will go ahead and give him 1 unit of blood today and follow. 3. Acute kidney injury. That is improving with gentle hydration. We will continue to monitor. He is also on Flomax. The obstructive uropathy component has resolved. 4. Hypokalemia. Stable. DISPOSITION: Pending clinical status, but anticipate discharge at the behest of the consulting physicians. cc: Frankie Laboy MD
[2019-01-03] MEDS: MELATONIN PO SCH (21:38)
[2019-01-04] MEDS: MORPHINE IV PRN (00:27)
[2019-01-04] MEDS: NORVASC PO SCH ×3 (03:04→20:34)
[2019-01-04] MEDS: FLOMAX PO SCH ×3 (03:04→20:34)
[2019-01-04] MEDS: SYNTHROID PO SCH ×2 (05:43→06:40)
[2019-01-04 06:55] LABS: HEMATOCRIT 24.5 % (42.0-52.0); HEMOGLOBIN 8.1 g/dL (14.0-18.0); MCH 30.5 PG (27-31); MCHC 33.1 g/dL (33-37); MCV 92.1 FL (81-99); MPV 10.9 FL (7.4-10.4); RBC 2.66 XMIL (4.7-6.1); RDW 15.7 % (11.5-14.5); WBC 9.84 X1000 (4.8-10.8)
[2019-01-04 06:57] LABS: CALCIUM 7.9 mg/dL (8.8-10.2); CREATININE 1.7 mg/dL (0.7-1.2); PHOSPHORUS 2.7 mg/dL (2.7-4.5)
[2019-01-04] MEDS: LEVAQUIN 500 MG/D5W 500 MG/100 ML IVPB IV SCH (09:19)
[2019-01-04] MEDS: NS 1,000 ML IV SCH (09:21)
[2019-01-04] MEDS ORDERED: MAGNESIUM SULFATE 2 GM/S.W.I. 2 GM/50 ML IVPB IV ONE (13:42)
[2019-01-04] MEDS ORDERED: KLOR-CON PO ONE (14:19)
--- NOTE | 2019-01-04 15:15 | PROVIDER PROGRESS NOTE ---
Progress Note Subjective: pt is lying in bed awake. Voices resting well. Denies any uremic complaints, wants to go home. Objective: vitals. Temp 97.9, pulse 87, respiration 16, blood pressure 145/67, 02 sat 99% on room air. General: elderly white male lying in bed in no acute distress HEENT: [place], normocephalic, atraumatic, mucous membranes moist. Pupils equal round and reactive. Skin: warm and dry Neck: supple, No jvd. Cardiovascular: S1, S2, regular rate and rhythm. No murmur or gallop. Respiratory: clear bilaterally with equal air excursion Abdominal: protuberant, less firm from yesterday, nontender. bowel sounds present : None observed. Osorio in place. [place] red urine in osorio bag. Extremities: 2+ pitting Edema to lower extremities bilaterally. Neurologic: alert, oriented to person, place, and time. Labs: WBC 9.84, hemoglobin 8.1, hematocrit 24.5, platelet count 225, sodium 144, potassium 3.0, chloride 104, carbon dioxide 28, BUN 27, creatinine 1.7, calcium 7.9, magnesium 1.4, albumin 3.0. Intake 24,000 output 22,560. Impression: Acute kidney injury from bilateral hydronephrosis with chronicity on left. Creatinine continues to Improve. Continue to monitor. Anemia. Low but stable. Hypokalemia. No intervention required at this time. Nutrition. Adequate. Ambulation. Adequate. Medications reviewed. No changes.
--- NOTE | 2019-01-04 15:34 | PROGRESS NOTE ---
DATE: 01/04/2019 SUBJECTIVE: The patient is feeling fine. I actually met this patient in the hallway walking without any complaints. His urinary bag was full of blood. Yesterday he needed to have one unit of blood transfused. He is not feeling dizzy. OBJECTIVE: Vital Signs: Temperature is 98, heart rate 83, respiratory rate 15, blood pressure 114/56, and O2 saturation 100% on room air. General: The patient is a chronically ill-appearing 83-year-old male lying in bed in no acute distress. Cardiovascular: S1 and S2 are heard. No murmurs, gallops, or rubs. Regular rate and rhythm. Respiratory: Clear bilaterally to auscultation. No work of breathing or use of accessory muscles. Abdomen: Soft and nontender to palpation. Bowel sounds present. No organomegaly. Extremities: No clubbing, cyanosis, or edema. Peripheral pulses are present in both legs. Genitourinary: Patient with a Blackwood catheter with very bloody urine. Neurological: The patient is alert and oriented times 3 and moves all 4 extremities. LABORATORY DATA: Hemoglobin is 8.1 after transfusion of 1 unit of blood. Potassium is 3. ASSESSMENT AND PLAN: 1. Persistent hematuria related to bladder dysfunction, pelvic mass with clot in the bladder, and hydroureteronephrosis. The patient continues to have bleeding so he has been scheduled for a repeat cystoscopy tomorrow. He has been transfused 1 unit of blood yesterday. We will check a CBC tomorrow and transfuse if needed. 2. Symptomatic anemia. Hemoglobin now is much more stable. We will continue to check a CBC daily. 3. Acute kidney injury continues to improve. That was secondary to obstructive uropathy. 4. Hypokalemia. Potassium is 3 so we will replace potassium. cc: Geoffrey Lauren MD
[2019-01-04] MEDS: MELATONIN PO SCH (20:34)
[2019-01-05 04:53] LABS: HEMOGLOBIN 8.8 g/dL (14.0-18.0); MCH 29.6 PG (27-31); MCHC 32.6 g/dL (33-37); MCV 90.9 FL (81-99); MPV 10.3 FL (7.4-10.4); RBC 2.97 XMIL (4.7-6.1); RDW 15.6 % (11.5-14.5); WBC 10.81 X1000 (4.8-10.8)
[2019-01-05] MEDS: MORPHINE IV PRN ×3 (04:59→21:38)
[2019-01-05 05:07] LABS: ALBUMIN 3.4 g/dL (3.5-5.0); CALCIUM 8.8 mg/dL (8.8-10.2); CREATININE 1.5 mg/dL (0.7-1.2); PHOSPHORUS 2.5 mg/dL (2.7-4.5)
[2019-01-05] MEDS: SYNTHROID PO SCH (06:02)
[2019-01-05] MEDS: LEVAQUIN 500 MG/D5W 500 MG/100 ML IVPB IV SCH (10:35)
[2019-01-05] MEDS ORDERED: POTASSIUM CHLORIDE 60 MEQ in NS 500 ML IV ONE (10:49)
[2019-01-05] MEDS: FLOMAX PO SCH ×2 (11:31→21:38)
[2019-01-05] MEDS: NORVASC PO SCH ×2 (11:32→21:38)
--- NOTE | 2019-01-05 13:40 | PROGRESS NOTE ---
DATE: 01/05/2019 SUBJECTIVE: Patient reports feeling fine. The patient has been walking in the hallway and doing perfectly fine, not feeling dizzy or weak. His urine VAC looks like he has less hematuria. He is scheduled for his cystoscopy today. As per Dr. Dinero, because of recurrent hematuria there is a second cystoscopy that he is getting. OBJECTIVE: Vital Signs: Temperature 97.7 degrees, heart rate 90, respiratory rate 16, blood pressure 140/67, O2 saturation 99% on room air. General Examination: This is an 83-year-old male, lying in bed in no acute distress. Cardiovascular exam: S1, S2 heard. No murmurs, gallops, or rubs. Regular rate and rhythm. Respiratory exam: Clear bilaterally to auscultation. No work of breathing or using accessory muscles. Abdomen: Soft, nontender to palpation. Bowel sounds present. No organomegaly. Genitourinary: Patient with Blackwood catheter connected to continuous irrigation with bloody urine, definitely less blood in comparing with yesterday. Neurological exam: Patient alert and oriented x3. Moves 4 extremities. Hard of hearing. LABORATORY DATA: White cell count 10.81, hemoglobin 8.8, hematocrit 27.0, platelets 284 with potassium 3.0 and creatinine 1.5, phosphorus 2.5. ASSESSMENT AND PLAN: 1. Persistent hematuria related to bladder dysfunction, pelvic mass with clot in the bladder and hydroureteronephrosis. The bleeding has been going on since admission. Apparently this patient is not bleeding like he was at presentation. While he was here, he needed to be transfused 4 units of blood. The last 1 was given two days ago in the morning. As we mentioned before, I think this hematuria is resolving slowly. Dr. Dinero from Urology is planning to take this patient to the operating room. We will see what he finds out. If the patient is cleared by Urology tomorrow, he can be discharged. 2. Symptomatic anemia. Hemoglobin continues to be stable. We will continue to monitor. 3. Acute kidney injury secondary to obstructive uropathy. Creatinine continues to improve. Nephrology has been following this patient, but they will sign off because this patient continues to improve. 4. Hypokalemia. Potassium is very low, so we will replenish. 5. Disposition: At this point, patient is doing better; his hemoglobin is stable. So if tomorrow patient is cleared by Urology, then we can discharge this patient. Patient can go home. He lives with . He has good family support and he is not weak; actually, he was walking in the hallways without assistance. cc: Geoffrey Lauren MD
[2019-01-05] MEDS: NEUTRA-PHOS PO SCH ×3 (14:30→21:38)
[2019-01-05] MEDS ORDERED: SODIUM CHLORIDE 0.9% 20 ML ONE (15:10)
[2019-01-05] MEDS ORDERED: ROBINUL ONE (15:10)
[2019-01-05] MEDS ORDERED: XYLOCAINE-MPF 2% ONE (15:10)
[2019-01-05] MEDS ORDERED: DIPRIVAN 1% ONE (15:10)
[2019-01-05] MEDS ORDERED: NEO-SYNEPHRINE ONE (15:10)
[2019-01-05] MEDS ORDERED: ZOFRAN ONE (16:04)
[2019-01-05] MEDS: DILAUDID ONE ×4 (16:50→17:16)
--- NOTE | 2019-01-05 20:20 | OPERATIVE NOTE ---
PROCEDURE DATE: 01/05/2019 SURGEON: Ganesh Dinero MD. PREOPERATIVE DIAGNOSIS: History of enlarged prostate with gross hematuria and clot retention with acute blood-loss anemia, abnormal bladder mucosa . POSTOPERATIVE DIAGNOSIS: History of enlarged prostate with gross hematuria and clot retention with acute blood-loss anemia, abnormal bladder mucosa. PROCEDURE PERFORMED: Cystoscopic exam, clot irrigation, bladder biopsies with cauterization of bleeding areas, place suprapubic tube. ANESTHESIA: General via laryngeal mask. FINDINGS: Cystoscopic exam: Urethra-greater than 25-Libyan without stricture, prostate- collapsing lateral lobes, elevated bladder neck, length approximately 5 to 6 cm. There were no bleeding areas in the prostate. Bladder-normal ureteral orifices bilaterally with indwelling double-J stents. There was a large amount of clot on the base of the bladder and posteriorly (about 300 mL) this was easily irrigated out. After the clots were irrigated there was thickened mucosa that was oozing on the midposterior lower bladder, multiple cold cup biopsies of this were taken and sent to Pathology in 1 container. The gyrus resectoscope loop was used to cauterize this area thoroughly. INDICATION FOR PROCEDURE: This 83-year-old male was admitted to the hospital about 1 week ago in clot retention. He underwent cystoscopic exam with clot irrigation removing over 1200 mL of clot from his bladder. No distinct bleeding areas were seen at that time. A 3 way Blackwood catheter was placed and continuous bladder irrigation was started. This was tried to be weaned off but he kept bleeding. He had several units of packed red blood cells transfused to keep his hematocrit above 24. Because the bleeding did not seem to be controlled with the bladder irrigation it was decided to recheck his bladder. DESCRIPTION OF PROCEDURE: After informed consent was obtained the patient, him receiving his routine IV antibiotics, he was taken the main OR cystoscopy room, placed in supine position. General anesthesia via laryngeal mask was achieved. He was then prepped and draped in the usual sterile fashion for lower abdominal surgery and cystoscopic exam. A 21-Libyan sheath cystoscope was passed through the patient's urethra, prostate, and into the bladder. A Rosario syringe was used to irrigate all the clots out of the bladder. At completion the cold cup biopsy forceps were placed and cold cup biopsies of the abnormal bladder area in the lower midline posterior wall were taken. Approximately 5 biopsies were taken and sent to Pathology in 1 container. The cystoscope was removed and the 25-Libyan continuous flow resectoscope sheath with the thick Gyrus loop electrode was placed. The machine was set at 80 coag and 160 cut. The posterior wall lower midline was thoroughly fulgurated. No bleeding areas were seen. The double-J stents were in proper position at completion. The bladder was left distended. A stab incision was made 2 fingerbreadths above the pubic bone in the midline. A [place] suprapubic tube introducer was pushed into the bladder under direct vision. The trocar was removed. A 16-Libyan Blackwood catheter was passed through the sheath, 10 mL sterile water were placed in the Blackwood balloon. The sheath was removed. The Blackwood was sutured to the skin with 0 silk. The catheter irrigated without difficulty and the irrigant was clear. The bladder was again inspected and no bleeding areas were seen. The prostate was not bleeding. The resectoscope was removed. He tolerated the procedure well. Estimated blood loss 3 mL during the case, approximately 300 mL of clot were removed. He was taken to the recovery room in good condition. cc: Ganesh Dinero MD
[2019-01-05] MEDS: PHENERGAN IV PRN (21:38)
[2019-01-05] MEDS: MELATONIN PO SCH (21:38)
[2019-01-05] MEDS: PERIDEX MT SCH (21:38)
[2019-01-06] MEDS: NS 1,000 ML IV SCH (04:16)
[2019-01-06] MEDS: MORPHINE IV PRN ×2 (04:17→09:01)
[2019-01-06] MEDS: SYNTHROID PO SCH (06:06)
[2019-01-06 06:39] LABS: HEMATOCRIT 24.3 % (42.0-52.0); HEMOGLOBIN 7.8 g/dL (14.0-18.0); MCH 30.2 PG (27-31); MCHC 32.1 g/dL (33-37); MCV 94.2 FL (81-99); MPV 9.6 FL (7.4-10.4); RBC 2.58 XMIL (4.7-6.1); RDW 15.6 % (11.5-14.5); WBC 9.66 X1000 (4.8-10.8)
[2019-01-06 07:01] LABS: ALBUMIN 3.2 g/dL (3.5-5.0); CALCIUM 8.2 mg/dL (8.8-10.2); CREATININE 1.2 mg/dL (0.7-1.2); PHOSPHORUS 2.5 mg/dL (2.7-4.5); POTASSIUM 2.9 mmol/L (3.5-5.1)
[2019-01-06] MEDS: LEVAQUIN 500 MG/D5W 500 MG/100 ML IVPB IV SCH (09:02)
[2019-01-06] MEDS: PERIDEX MT SCH (09:03)
[2019-01-06] MEDS: NEUTRA-PHOS PO SCH ×2 (09:03→13:08)
[2019-01-06] MEDS: NORVASC PO SCH (09:03)
[2019-01-06] MEDS: FLOMAX PO SCH (09:03)
--- NOTE | 2019-01-06 10:53 | DISCHARGE SUMMARY ---
ADMISSION DATE: 12/30/2018 DISCHARGE DATE: 01/06/2019 HOSPITAL COURSE: He is a patient of Dr. eJnifer Conde; has lower extremity swelling, scrotal swelling and leaky bladder. An 83-year-old male with a medical history of hypertension, hypothyroidism, recently had treated for benign prostatic hypertrophy and lower extremity edema. States for 2 to 3 months he has had increased swelling in his lower extremities. He was started on Lasix about 2 weeks before this admission. Claims his cardiac workup was negative. Over the last 2 to 3 days, he started having more swelling in scrotum, very leaky bladder, unable to control his bladder, hard to empty, hard to urinate. Denies any burning or urination, but urinalysis appeared to be consistent with urinary tract infection. So treated for acute kidney injury on the bladder scan. He had over 900 mL of urine in the bladder, so consulted Dr. Stephon Dinero, placed a coude Blackwood catheter increased his frequency with Flomax p.o. and, given acute kidney injury, they held off on Lasix and gave him some fluids to help flush his kidneys and improve renal flow. PAST MEDICAL HISTORY: 1. Hypertension. 2. Hypothyroidism. 3. Benign prostatic hypertrophy. 4. Bilateral lower extremity edema. SURGICAL HISTORY: 1. He had skin cancer removed from his nose. 2. Tonsillectomy and adenoidectomy. 3. Left hand surgery. ADMISSION DIAGNOSES: 1. Benign prostatic hypertrophy with urinary tract infection requiring Blackwood catheter placement per Dr. Stephon Dinero and put on some Flomax. 2. Acute kidney injury, likely post renal due to benign prostatic hypertrophy and obstructive urinary pathology. 3. Bilateral lower extremity edema with scrotal edema. Plan was to get an echocardiogram, lower extremity ultrasound and evaluate his left ventricular function. 4. Hypertension. 5. Hypothyroidism. 6. Deep venous thrombosis. 7. Urinary tract infection. Dr. Dinero was consulted. He felt a large prostate with obstructive voiding urinary retention. Postvoid scan was greater than 999 mL, lower extremity and scrotal edema, and renal insufficiency. He was prepped and draped for Blackwood catheter insertion. Coude catheter was placed and renal ultrasound was obtained on 12/31. Prominent bilateral hydronephrosis secondary to large pelvic mass versus enlarged prostate. Echocardiogram done on 12/31/2018: Mild aortic regurgitation, mild dilatation of proximal ascending aorta, mild mitral regurgitation, mild tricuspid regurgitation. Estimated PA pressure was 35 mmHg. Estimated left ventricular ejection fraction was 55%. Has grade 1 ventricular diastolic dysfunction. 8. Extremity venous study on 12/31: No evidence of deep or superficial venous thrombosis in either lower extremity. 9. Renal CT done on 12/31: Marked distention of urinary bladder with large bladder mass versus large hematoma with bilateral hydronephrosis. Body wall edema with tiny pleural effusions, severe atherosclerosis, colonic diverticulosis, and right inguinal hernia appreciated. 10. Had a retrograde pyelogram read by Dr. Glynn: Bilateral hydronephrosis worse on the left than the right. Obstruction on the left side may be at the level of ureteral surface. 11. Possibility of mucosal neoplasia in the distal right ureter cannot be excluded. Bilateral stent placement appreciated. Dr. Yohan Cruz, bobbin handler, was asked to see for acute kidney injury from bilateral hydronephrosis with chronicity on the left. He had a Blackwood catheter and the plan was to go and get surgery. Medications were reviewed and acid base electrolytes appeared to require no intervention. 12. Surgery by Dr. Stephon Dinero on 01/01: Cystoscopic exam, clot irrigation, fulguration of some bleeding areas. Bilateral retrograde ureteral pyelograms placed and bilateral double-J stents placed. The patient clinically improved and wanted to go home today. He was taken back to surgery for cystoscopic exam, clot irrigation, bladder biopsy, and cauterization of bleeding area. I placed a suprapubic tube. He was okay to be discharged today by Urology. He would like to go home. Follow up with Dr. Stephon Dinero in his primary care. DISCHARGE MEDICATIONS: Norvasc 5 mg twice a day. I will keep him on Levaquin 500 mg p.o. daily for another 7 days, Synthroid 25 mcg daily, melatonin 5 mg at bedtime, Urogesic Blue can take p.o. t.i.d. p.r.n. bladder spasms, Neutra-Phos 1 p.o. 4 times a day, and Flomax 0.4 mg twice a day. cc: Vimal Hammer MD
[2019-01-06 11:14] VITALS: BP 113/73
== END 2019-01-06 14:12 | disposition home health service (06) | DRG 717 ==
LOC: ED 10:01 → EDIPHOLD 13:32 → SUATTDRO 13:32 → 1N 16:36 → 2N 01-01 10:15 → 4N 01-02 14:42
PROVIDERS: ATTEND Emergency Medicine